=== PATIENT | male | born 1940 | race Caucasian/White ===

== ENCOUNTER 2016-11-10 20:49 | Emergency (ER) | payer OTHER ==
[~2016-11-10] VITALS: Ht 177.8 cm; Wt 126.5 kg
[~2016-11-10 20:49] MED LIST: AMOX TR-K CLV1 EAC4 PO; COUMADIN; COUMADIN,JANTOV10 MG PO; FLOMAX0.4 MG PO; TESSALON PERLE100 MG PO; WARFARIN SODIUM10 MG PO; XARELTO1 EACH PO
[2016-11-10 23:22] LABS: HEMATOCRIT 41.5 % (38.0-50.0); MCH 30.7 PG (29.0-34.0); MCHC 34.2 G/DL (30.0-36.0); MCV 89.6 FL (86-99); MEAN PLAT.VOLUME 9.7 uM^3 (9.0-12.4); PLATELET COUNT 208 K/uL (156-360); RBC DIS.WIDTH-CV 13.3 % (11.8-14.6); RED BLOOD COUNT 4.63 M/uL (4.00-5.50); WHITE BLOOD COUNT 7.8 K/uL (4.1-10.2)
[2016-11-10 23:32] LABS: INTER. NORMALIZED RATIO 2.9; PROTHROMBIN TIME 30.9 (9.2-11.2); PTT 40.4 (25-32)
[2016-11-10 23:33] LABS: CHLORIDE 105 mEq/L (99-109); POTASSIUM 4.1 mEq/L (3.7-5.4); SODIUM 137 mEq/L (136-147)
[2016-11-10 23:35] LABS: GLUCOSE 145 mg/dL (70-99)
[2016-11-10 23:37] LABS: ANION GAP 7 MEQ/L (2-14)
[2016-11-10 23:39] LABS: GFR ESTIMATE (CALCULATED) > 59 mL/min/
[2016-11-10 23:40] LABS: UREA NITROGEN (BUN) 15 mg/dL (9-23)
[2016-11-10] MEDS ORDERED: LOVENOX120 MG/0.8 SC (23:56)
[2016-11-11 01:02] VITALS: BP 131/86
== END 2016-11-11 01:02 | disposition home or self-care (01) ==
LOC: EME 20:49
PROVIDERS: Physician Assistant
DX: I82.422 Acute embolism and thrombosis of left iliac vein (principal); I82.412 Acute embolism and thrombosis of left femoral vein; Z86.718 Personal history of other venous thrombosis and embolism; Z86.711 Personal history of pulmonary embolism; Z88.5 Allergy status to narcotic agent
CPT/HCPCS: 80048; 85027; 85610; 85730; 93971; 99281; 99283; J1650

== ENCOUNTER 2017-01-14 07:49 | Emergency (ER) | payer OTHER ==
[~2017-01-14] VITALS: Ht 180.3 cm; Wt 124.2 kg
[~2017-01-14 07:49] MED LIST changes: +LOVENOX120 MG/0.8 SC
[2017-01-14 08:36] LABS: HEMATOCRIT 45.1 % (38.0-50.0); MCH 30.2 PG (29.0-34.0); MCHC 33.5 G/DL (30.0-36.0); MCV 90.2 FL (86-99); MEAN PLAT.VOLUME 9.7 uM^3 (9.0-12.4); PLATELET COUNT 158 K/uL (156-360); RBC DIS.WIDTH-CV 13.2 % (11.8-14.6); RBC DIS.WIDTH-SD 43.7 % (39-53); WHITE BLOOD COUNT 5.9 K/uL (4.1-10.2)
[2017-01-14 08:45] LABS: CHLORIDE 101 mEq/L (99-109); POTASSIUM 4.4 mEq/L (3.7-5.4); SODIUM 134 mEq/L (136-147)
[2017-01-14 08:47] LABS: GLUCOSE 196 mg/dL (70-99)
[2017-01-14 08:48] LABS: ANION GAP 9 MEQ/L (2-14)
[2017-01-14 08:49] LABS: INTER. NORMALIZED RATIO 1.7; PROTHROMBIN TIME 17.6 (9.2-11.2); PTT 32.2 (25-32)
[2017-01-14 08:50] LABS: GFR ESTIMATE (CALCULATED) > 59 mL/min/
[2017-01-14 08:51] LABS: UREA NITROGEN (BUN) 12 mg/dL (9-23)
[2017-01-14 09:03] LABS: TROP-I INTERPRETATION NEGATIVE; TROPONIN-I < 0.01 ng/mL (0.0-0.30)
[2017-01-14] MEDS ORDERED: DOXYCYCLINE HY100 MG PO (10:45)
[2017-01-14] MEDS ORDERED: HYCODAN SYRUP480 ML PO (10:45)
[2017-01-14 10:54] VITALS: BP 125/56
[2017-01-14] MEDS ORDERED: TYLENOL WITH C1 EACH PO (19:33)
== END 2017-01-14 10:59 | disposition home or self-care (01) ==
LOC: EME 07:49
PROVIDERS: Emergency Medicine
DX: J40 Bronchitis, not specified as acute or chronic (principal); Z86.711 Personal history of pulmonary embolism; Z86.718 Personal history of other venous thrombosis and embolism; Z79.01 Long term (current) use of anticoagulants
CPT/HCPCS: 71010; 71275; 80048; 84484; 85027; 85610; 85730; 93005; J3010; J7040

== ENCOUNTER 2017-01-14 14:49 | Emergency (ER) | payer OTHER ==
[~2017-01-14] VITALS: Ht 180.3 cm; Wt 123.8 kg
[~2017-01-14 14:49] MED LIST changes: +DOXYCYCLINE HY100 MG PO; +HYCODAN SYRUP480 ML PO
[2017-01-14 16:57] LABS: EOSINOPHIL (%) 0.2 % (0-5); HEMATOCRIT 42.7 % (38.0-50.0); IMMATURE GRANULOCYTE (%) 0.3 % (0.0-0.7); INSTRUMENT ABS NEUTROPHIL CT 4.3 K/uL; LYMPHOCYTE COUNT 0.7 K/uL (1.0-2.8); MCH 30.7 PG (29.0-34.0); MCHC 34.2 G/DL (30.0-36.0); MCV 89.9 FL (86-99); MEAN PLAT.VOLUME 9.6 uM^3 (9.0-12.4); MONOCYTE (%) 18.5 % (3-12); MONOCYTE COUNT 1.2 K/uL (0-0.8); NEUTROPHIL (%) 69.2 % (45-76); NEUTROPHIL COUNT 4.3 K/uL (1.8-6.4); PLATELET COUNT 141 K/uL (156-360); RBC DIS.WIDTH-CV 13.2 % (11.8-14.6); RBC DIS.WIDTH-SD 43.9 % (39-53); RED BLOOD COUNT 4.75 M/uL (4.00-5.50); WHITE BLOOD COUNT 6.2 K/uL (4.1-10.2)
[2017-01-14 17:13] LABS: CHLORIDE 99 mEq/L (99-109); POTASSIUM 4.2 mEq/L (3.7-5.4); SODIUM 132 mEq/L (136-147)
[2017-01-14 17:14] LABS: GLUCOSE 169 mg/dL (70-99)
[2017-01-14 17:16] LABS: ANION GAP 7 MEQ/L (2-14)
[2017-01-14 17:18] LABS: GFR ESTIMATE (CALCULATED) > 59 mL/min/
[2017-01-14 17:19] LABS: UREA NITROGEN (BUN) 13 mg/dL (9-23)
[2017-01-14 17:27] LABS: TROP-I INTERPRETATION NEGATIVE; TROPONIN-I < 0.01 ng/mL (0.0-0.30)
[2017-01-14] MEDS ORDERED: TYLENOL WITH C1 EACH PO (19:33)
[2017-01-14 19:59] VITALS: BP 121/86
== END 2017-01-14 20:20 | disposition home or self-care (01) ==
LOC: EME 14:49
PROVIDERS: Emergency Medicine
DX: S70.01XA Contusion of right hip, initial encounter (principal); W18.30XA Fall on same level, unspecified, initial encounter; Y92.009 Unspecified place in unspecified non-institutional (private) residence as the place of occurrence of the external cause; Z86.711 Personal history of pulmonary embolism; Z86.718 Personal history of other venous thrombosis and embolism
CPT/HCPCS: 73502; 80048 91; 84484; 85025; 93005; 94640; 99281; 99285

== ENCOUNTER 2017-01-23 10:17 | Emergency (ER) | payer OTHER ==
[~2017-01-23] VITALS: Ht 172.7 cm; Wt 118.8 kg
[~2017-01-23 10:17] MED LIST changes: +TYLENOL WITH C1 EACH PO
[2017-01-23 11:46] LABS: EOSINOPHIL (%) 0.4 % (0-5); HEMATOCRIT 45.9 % (38.0-50.0); IMMATURE GRANULOCYTE (%) 0.4 % (0.0-0.7); INSTRUMENT ABS NEUTROPHIL CT 4.5 K/uL; LYMPHOCYTE COUNT 2.2 K/uL (1.0-2.8); MCHC 35.1 G/DL (30.0-36.0); MEAN PLAT.VOLUME 10.2 uM^3 (9.0-12.4); MONOCYTE (%) 10.2 % (3-12); MONOCYTE COUNT 0.8 K/uL (0-0.8); NEUTROPHIL (%) 59.2 % (45-76); NEUTROPHIL COUNT 4.5 K/uL (1.8-6.4); RBC DIS.WIDTH-CV 13.2 % (11.8-14.6); RED BLOOD COUNT 5.37 M/uL (4.00-5.50); WHITE BLOOD COUNT 7.6 K/uL (4.1-10.2)
[2017-01-23 11:48] LABS: MCV 85.5 FL (86-99); PLATELET COUNT 206 K/uL (156-360)
[2017-01-23 11:55] LABS: CHLORIDE 100 mEq/L (99-109); POTASSIUM 3.3 mEq/L (3.7-5.4); SODIUM 134 mEq/L (136-147)
[2017-01-23 11:57] LABS: GLUCOSE 181 mg/dL (70-99)
[2017-01-23 11:59] LABS: ANION GAP 13 MEQ/L (2-14); TOTAL BILIRUBIN 1.8 mg/dL (0.0-1.0)
[2017-01-23 12:01] LABS: ALKALINE PHOSPHATASE 52 IU/L (3-129); GFR ESTIMATE (CALCULATED) > 59 mL/min/
[2017-01-23 12:02] LABS: UREA NITROGEN (BUN) 14 mg/dL (9-23)
[2017-01-23 12:07] LABS: TROP-I INTERPRETATION NEGATIVE; TROPONIN-I < 0.01 ng/mL (0.0-0.30)
[2017-01-23 12:42] LABS: INTER. NORMALIZED RATIO 5.8; PROTHROMBIN TIME 62.2 (9.2-11.2)
[2017-01-23 14:16] LABS: TROP-I INTERPRETATION NEGATIVE; TROPONIN-I < 0.01 ng/mL (0.0-0.30)
[2017-01-23 15:17] VITALS: BP 138/78
== END 2017-01-23 15:30 | disposition home or self-care (01) ==
LOC: EME 10:17
PROVIDERS: Emergency Medicine
DX: R07.89 Other chest pain (principal); J06.9 Acute upper respiratory infection, unspecified; R51 Headache; Z86.711 Personal history of pulmonary embolism; Z86.718 Personal history of other venous thrombosis and embolism; Z79.01 Long term (current) use of anticoagulants
CPT/HCPCS: 70450; 71010; 80053; 84484; 85025; 85610; 85730; 93005; 99281; 99284

== ENCOUNTER 2017-12-20 09:27 | Inpatient (IN) | payer OTHER ==
[~2017-12-20] VITALS: Ht 180.3 cm; Wt 122.2 kg
[2017-12-20] VITALS (13 sets, daily range): BP systolic 103–151; BP diastolic 47–86
[2017-12-20 09:39] LABS: BASOPHIL (%) 0.7 % (0-1); BASOPHIL COUNT 0.1 K/uL (0-0.1); EOSINOPHIL (%) 1.5 % (0-5); EOSINOPHIL COUNT 0.1 K/uL (0-0.3); HEMOGLOBIN 15.2 G/DL (12.5-16.6); IMMATURE GRANULOCYTE (%) 0.5 % (0.0-0.7); LYMPHOCYTE COUNT 4.3 K/uL (1.0-2.8); MCH 31.7 PG (29.0-34.0); MCHC 34.5 G/DL (30.0-36.0); MCV 91.9 FL (86-99); MONOCYTE (%) 9.5 % (3-12); MONOCYTE COUNT 0.8 K/uL (0-0.8); NEUTROPHIL (%) 38.8 % (45-76); NEUTROPHIL COUNT 3.4 K/uL (1.8-6.4); PLATELET COUNT 206 K/uL (156-360); RBC DIS.WIDTH-CV 12.6 % (11.8-14.6); RBC DIS.WIDTH-SD 42.5 % (39-53); RED BLOOD COUNT 4.79 M/uL (4.00-5.50); WHITE BLOOD COUNT 8.8 K/uL (4.1-10.2)
[2017-12-20 09:46] LABS: INTER. NORMALIZED RATIO 1.4; PTT 27.9 SEC (25-37)
[2017-12-20 09:52] LABS: AMYLASE 42 IU/L (1-118); CHLORIDE 105 mEq/L (99-109); POTASSIUM 3.8 mEq/L (3.7-5.4); SODIUM 138 mEq/L (136-147)
[2017-12-20 09:54] LABS: GLUCOSE 217 mg/dL (70-99)
[2017-12-20 09:57] LABS: SERUM ETHYL ALCOHOL < 10 mg/dL
[2017-12-20 09:58] LABS: CREATININE 0.9 mg/dL (0.6-1.3); GFR ESTIMATE (CALCULATED) > 59 mL/min/ (58.99-99999)
[2017-12-20 09:59] LABS: UREA NITROGEN (BUN) 11 mg/dL (9-23)
[2017-12-20 10:01] LABS: LIPASE 11 U/L (1.0-51.0)
[2017-12-20 10:07] LABS: TROP-I INTERPRETATION NEGATIVE; TROPONIN-I < 0.01 ng/mL (0.0-0.30)
[2017-12-20] MEDS ORDERED: COUMADIN5 MG PO (13:52)
[2017-12-20 18:36] LABS: TROP-I INTERPRETATION POSITIVE; TROPONIN-I 27.83 ng/mL (0.0-0.30)
[2017-12-21] VITALS (17 sets, daily range): BP systolic 108–155; BP diastolic 55–88
[2017-12-21 00:47] LABS: TROP-I INTERPRETATION POSITIVE
[2017-12-21 00:48] LABS: TROPONIN-I 27.38 ng/mL (0.0-0.30)
[2017-12-21 04:57] LABS: BASOPHIL (%) 0.5 % (0-1); EOSINOPHIL COUNT 0.1 K/uL (0-0.3); HEMATOCRIT 39.8 % (38.0-50.0); HEMOGLOBIN 13.9 G/DL (12.5-16.6); IMMATURE GRANULOCYTE (%) 0.4 % (0.0-0.7); LYMPHOCYTE (%) 24.3 % (15-42); LYMPHOCYTE COUNT 1.9 K/uL (1.0-2.8); MCH 32.1 PG (29.0-34.0); MCHC 34.9 G/DL (30.0-36.0); MCV 91.9 FL (86-99); MONOCYTE (%) 10.4 % (3-12); MONOCYTE COUNT 0.8 K/uL (0-0.8); NEUTROPHIL (%) 63.4 % (45-76); NEUTROPHIL COUNT 4.9 K/uL (1.8-6.4); PLATELET COUNT 158 K/uL (156-360); RBC DIS.WIDTH-CV 12.7 % (11.8-14.6); RBC DIS.WIDTH-SD 43.1 % (39-53); RED BLOOD COUNT 4.33 M/uL (4.00-5.50); WHITE BLOOD COUNT 7.8 K/uL (4.1-10.2)
[2017-12-21 05:12] LABS: CHLORIDE 105 mEq/L (99-109); POTASSIUM 3.8 mEq/L (3.7-5.4); SODIUM 136 mEq/L (136-147)
[2017-12-21 05:13] LABS: GLUCOSE 267 mg/dL (70-99)
[2017-12-21 05:17] LABS: GFR ESTIMATE (CALCULATED) > 59 mL/min/ (58.99-99999)
[2017-12-21 05:18] LABS: TROP-I INTERPRETATION POSITIVE; UREA NITROGEN (BUN) 13 mg/dL (9-23)
[2017-12-21 05:20] LABS: TROPONIN-I 22.18 ng/mL (0.0-0.30)
[2017-12-21 07:59] LABS: INTER. NORMALIZED RATIO 1.3
[2017-12-21] MEDS ORDERED: COUMADIN7.5 MG PO (12:44)
[2017-12-21] MEDS ORDERED: GLUCOPHAGE500 MG PO (12:50)
[2017-12-22 00:30] VITALS: BP 131/84
[2017-12-22 04:54] VITALS: BP 126/75
[2017-12-22 06:09] LABS: INTER. NORMALIZED RATIO 1.5
[2017-12-22 07:48] VITALS: BP 114/59
[2017-12-22] MEDS ORDERED: LOSARTAN POTASS25 MG PO (12:26)
[2017-12-22] MEDS ORDERED: METOPROLOL SUCC25 MG PO (12:26)
[2017-12-22] MEDS ORDERED: ATORVASTATIN CA40 MG PO (12:26)
[2017-12-22] MEDS ORDERED: CLOPIDOGREL75 MG PO (12:26)
[2017-12-22] MEDS ORDERED: ASPIR-LOW81 MG PO (12:26)
[2017-12-22 12:28] VITALS: BP 110/56
== END 2017-12-22 14:17 | disposition home or self-care (01) | DRG 247 ==
LOC: EME 09:27 → CATH 10:01 → ENRESERV 10:48 → 4WEST 11:06 → 2SOUTH 11:06 → 4WEST 11:10 → ENRESERV 12-21 16:24 → 4EAST 12-21 17:28
PROVIDERS: Emergency Medicine; Internal Medicine Cardiovascular Disease
DX: I21.02 ST elevation (STEMI) myocardial infarction involving left anterior descending coronary artery (principal); Z86.718 Personal history of other venous thrombosis and embolism; Z86.711 Personal history of pulmonary embolism; R00.1 Bradycardia, unspecified; N40.0 Benign prostatic hyperplasia without lower urinary tract symptoms; I25.10 Atherosclerotic heart disease of native coronary artery without angina pectoris; Z79.02 Long term (current) use of antithrombotics/antiplatelets; I87.8 Other specified disorders of veins; Q25.0 Patent ductus arteriosus
CPT/HCPCS: 71045; 80048; 81003; 82150; 83690; 83880; 84484; 85025; 85347; 85610; 85730; 86850; 86900; 86901; 87641; 93005; 93306; 99281; 99285; C1725; C1769; C1874; C1887; G0480; J0461; J1644; J1650; J2250; J2405; J3010; J7030